=== PATIENT | female | born 1980 | race Caucasian/White ===

== ENCOUNTER → 2020-06-10 15:51 | Outpatient (CLI) | payer BC, SELFPAY ==
--- NOTE | ~2020-06-10 | MM_ITS ---
EXAMINATION: MM screening marilyn BI w bert HISTORY: Screening TECHNIQUE: Craniocaudal and mediolateral oblique 3-D tomosynthesis images were obtained and synthetic 2-D images were generated. CAD analysis was submitted and interpreted. COMPARISON: No prior mammogram is available for comparison at this institution. BREAST PARENCHYMAL COMPOSITION: The breasts are extremely dense, which lowers the sensitivity of mamm ography. FINDINGS: There is no evidence of suspicious mass, calcification, or architectural distortion to sugg est malignancy in either breast. There has been no suspicious interval change. IMPRESSION: 1. No mammographic evidence of malignancy. 2. Recommend routine screening mammography in one year. BI-RADS Category 1: Negative Reviewed, dictated and finalized at location A.
== END ==
PROVIDERS: Visit Provider Obstetrics & Gynecology
DX: Z12.31 Encounter for screening mammogram for malignant neoplasm of breast (principal)
CPT/HCPCS: 77063; 77067

== ENCOUNTER → 2021-11-29 16:00 | Outpatient (CLI) | payer BC, SELFPAY ==
--- NOTE | ~2021-11-29 | MM_ITS ---
EXAMINATION: MM screening marilyn BI w bert HISTORY: Screening mammogram TECHNIQUE: Craniocaudal and mediolateral oblique 3-D tomosynthesis images were obtained and synthetic 2-D images were generated. CAD analysis was submitted and interpreted. COMPARISON: 06/10/2020 bilateral screening mammogram BREAST PARENCHYMAL COMPOSITION: The breasts are extremely dense, which lowers the sensitivity of mamm ography. FINDINGS: There is no evidence of suspicious mass, calcification, or architectural distortion to sugg est malignancy in either breast. There has been no suspicious interval change. IMPRESSION: 1. No mammographic evidence of malignancy. 2. Recommend routine screening mammography in one year. BI-RADS Category 1: Negative Reviewed, dictated and finalized at location A.
== END ==
PROVIDERS: PCP Nurse Practitioner; Visit Provider Obstetrics & Gynecology
DX: Z12.31 Encounter for screening mammogram for malignant neoplasm of breast (principal)
CPT/HCPCS: 77063; 77067

== ENCOUNTER → 2021-12-21 15:16 | Outpatient (CLI) | payer BC, SELFPAY ==
--- NOTE | ~2021-12-21 | US_ITS ---
US thyroid INDICATION: Malignant neoplasm of the thyroid gland TECHNIQUE: Real-time sonographic images of the thyroid gland were obtained. COMPARISON: No prior studies for comparison. FINDINGS: The thyroid gland is surgically absent. No residual mass or fluid collection in the thyroid fossa. IMPRESSION: 1. Unremarkable thyroid ultrasound status post thyroidectomy. Reviewed, dictated and finalized at location B.
== END ==
PROVIDERS: PCP Nurse Practitioner; Visit Provider Otolaryngology
DX: C73 Malignant neoplasm of thyroid gland (principal); E89.0 Postprocedural hypothyroidism
CPT/HCPCS: 76536

== ENCOUNTER 2022-01-11 00:35 | Day surgery (SDC) | payer BC, SELFPAY ==
[2022-01-04 12:04] VITALS: BMI 25.0
--- NOTE | 2022-01-04 12:16 | PC.NURSE ---
Report to the Outpatient Waiting Room, entrance under the green pavilion located off [address], at time 1130 on date 01/11/22. OR Time: 1330. Time changes happen often and if your time is changed the preop area will call you the afternoon before. - You and your visitor will be asked to self-screen and do not enter if you have any COVID symptoms. - We encourage only one visitor and NO visitors under age 16 are allowed at this time. Your visitor will receive communication by the phone number that is given day of service. - The patient visitor is requested to social distance or may leave the building when not with patient due to restrictions. - A mask is required within the hospital. Patients may have clear liquids (water, carbonated beverages, clear teas, apple juice) until 3 hours prior to surgery with a maximum of 20 ounces. - No food from midnight until time of surgery Take the following medications with a SIP of water the morning of surgery: LEVOTHYROXINE, FLUOXETINE Medications to discontinue per physician: N/A Date to take last dose: N/A Please no make-up, nail latvian, hairspray, perfume, deodorant, or body powder the day of surgery. No jewelry (including any body piercings) or valuables the day of surgery, leave them at home. Please take a shower or bath the night before, or the morning of, surgery with an antibacterial soap. Wear comfortable, loose fitting clothing. - Jewelry must be removed prior to entering the operating room. Rings and piercings that are not removed may be cut off. - The hospital will not accept responsibility for valuables. - Please leave all valuables, including medications, at home the day of surgery. If you are going home after surgery, a licensed [employer] flat[employer] truck driver must drive you home. - NO public transportation without another adult. - We recommend that an adult stay with you for 24 hours following discharge. - We also recommend that you do not drive, make important decision, drink alcoholic beverages, or take any drugs that were not prescribed by your health care provider for at least 24 hours after your discharge time. Follow any additional instructions given to you from your surgeon. If you or anyone in your household have experienced Covid symptoms in the past week, please notify your surgeon or the nurse liaison at the phone number below for possible testing. Telephone instructions given to PT - KASANDRA RHIANNA and asked if any additional questions and then verbalized understanding. Patient advised to call surgeon office or pre surgery nurse liaison [phone] if any additional questions.
[2022-01-11] VITALS (9 sets, daily range): BP systolic 116–148; BP diastolic 60–85; PULSE 57–89; RESP 12–20; TEMP 36.7–36.9; O2SAT 97–100
--- NOTE | 2022-01-11 08:57 | PM.IMHP ---
H&P: HPI History of Present Illness Date/Time: 01/11/22 08:57 Chief Complaint: Heavy periods Narrative: 41 y/o with monthly menses lasting 3-5 days each, with very heavy flow. She does not desire any future childbearing. She is interested in surgical management of her problem. Review of Systems Review of Systems: All systems reviewed & are unremarkable except as noted in HPI and below PMFSH Past Medical History Medical History Anxiety History of thoracic outlet syndrome Thyroid cancer Surgical History Surgical History History of cardiac radiofrequency ablation History of knee surgery History of surgery on wrist History of thyroidectomy Family History Family History Other Cerebrovascular accident Hypertension Social History Social History Smoking status: Never smoker Alcohol intake: current Drinks per week: 3 Substance use: never Substance use type: does not use Living arrangements: with family Spiritual care concerns: No Meds Home Medications and Allergies Home Medications Medication Instructions Recorded Confirmed Type fluoxetine 20 mg capsule 20 mg PO DAILY 01/04/22 01/04/22 History levothyroxine 100 mcg tablet 100 mcg PO DAILY 01/04/22 01/04/22 History loratadine 10 mg tablet (Claritin) 10 mg PO DAILY 01/04/22 01/04/22 History Allergies Allergy/AdvReac Type Severity Reaction Status Date / Time No Known Allergies Allergy Unknown Unverified 01/04/22 12:02 Exam Const: Orientation/consciousness: patient oriented x3 Other: Well-developed, well-nourished female in no acute distress. Neck: Thyroid: thyroid normal Lymphatic: no lymphadenopathy noted (in neck, axilla or inguinal nodes) Resp: Effort & Inspection: normal respiratory effort Auscultation: clear to auscultation bilaterally Cardio: Rate: regular rate Rhythm: regular rhythm Heart sounds: S1 normal heart sound present and S2 normal heart sound present GI: Other: ABD: Soft, nontender, nondistended. No guarding or rebound tenderness. No hepatosplenomegaly. : General: Yes no CVA tenderness Other: External genitalia: normal female hair distribution, without lesion. Urethral meatus: no lesion, non prolapsed. Bladder: no mass, nontender Vagina: well-estrogenized, without lesion or discharge. No cystocele or rectocele. Cervix: no lesion or discharge. Uterus: small, anteverted, freely mobile, nontender Adnexa: no mass or tenderness. Anus/perineum: no lesions, nontender Back/Spine/Pelvis: Back: no CVA tenderness Skin: General skin exam: normal color and no rashes or lesions noted Neuro: General: patient oriented x3 Extrem: Other: Extremities: nontender with no edema Psych: Mental Status: mental status grossly normal Affect: normal affect Assessment and Plan Assessment and plan (1) Unwanted fertility: Code(s): Z30.09 - Encounter for other general counseling and advice on contraception Status: Acute Assessment and Plan: A: Menometrorrhagia with desired sterility. P: We have reviewed medical as well as surgical treatment options. She prefers the latter. Specifically, she is interested in laparoscopic bilateral tubal ligation, hysteroscopy, dilation and sharp curettage, and endometrial ablation. She understands there are temporary methods of contraception available to her. She understands that there are nonsurgical options as well as surgical options. She understands that tubal ligation will render her permanently sterile. She understands that there is a failure rate associated with tubal ligation, as well as an inherent ectopic gestation risk. Furthermore, she understands risks of surgery to include risks of anesthesia, risks of pain, infection, bleeding,
--- NOTE | 2022-01-11 10:38 | ECG_ITS ---
Measurements Intervals [place] Rate: 65 P: 43 MA: 143 QRS: 70 QRSD: 93 T: 34 QT: 415 QTc: 434 Interpretive Statements SINUS RHYTHM NORMAL ECG NO PREVIOUS ECG AVAILABLE FOR COMPARISON Electronically Signed On 01-11-2022 13:56:38 CDT by Mukund Mckeon M.D.
--- NOTE | 2022-01-11 12:02 | WPDHPUPDATE1 ---
History and Physical Update Update Date/Time: 01/11/22 12:02 History and Physical has been reviewed, including an updated exam of the patient. There are NO changes in the patient's condition. Risks, benefits, and alternatives have been discussed and questions answered. Patient agrees to proceed with procedure.
[2022-01-11] MEDS: ACETAMINOPHEN 500 MG TABLET 1000 MG PO (12:06)
[2022-01-11] MEDS: LACTATED RINGERS 1,000 ML 30 ML IV CONT ×2 (12:16→15:05)
[2022-01-11] MEDS: KETOROLAC 15 MG/ML VIAL (*BKC) IV PUSH (12:17)
--- NOTE | 2022-01-11 12:58 | P.PNAN_ITS ---
Anes - Initial Pre Proc Eval Procedure: Operation Date: 01/11/22 13:30 Proposed Procedures p Laparoscopic Tubal Ligation with Fallopian Rings - Rafael Wade MD s Hysteroscopy Dilation and Curettage with Radha Endometrial Ablation - Rafael Wade MD Date/Time: 01/11/22 12:58 Surgeon: Rafael Wade MD Pre Op Diagnosis: desires sterilization, heavy bleeding Patient Data Age: 41 Gender: F Height: 1.65 m Weight: 67.3 kg Last Vital Signs Temp 98.4 F 01/11/22 11:32 Pulse 77 01/11/22 11:32 Resp 16 01/11/22 11:32 BP 116/78 01/11/22 11:32 Pulse Ox 100 01/11/22 11:32 O2 Del Method Room Air 01/11/22 11:32 Allergies Allergy/AdvReac Type Severity Reaction Status Date / Time No Known Allergies Allergy Unknown Unverified 01/11/22 11:51 Home Medications Medication Instructions Recorded Confirmed Type fluoxetine 20 mg capsule 20 mg PO DAILY 01/04/22 01/11/22 History levothyroxine 100 mcg tablet 100 mcg PO DAILY 01/04/22 01/11/22 History loratadine 10 mg tablet (Claritin) 10 mg PO DAILY 01/04/22 01/11/22 History Patient hx anesthesia problems: none Family hx anesthesia problems: none Results Review: All pre-operative results and documents have been reviewed as part of the pre- operative evaluation. [facility] Past Medical History Medical History Anxiety History of thoracic outlet syndrome Thyroid cancer Surgical History Surgical History History of cardiac radiofrequency ablation History of knee surgery History of surgery on wrist History of thyroidectomy Family History Family History Other Cerebrovascular accident Hypertension Social History Social History Smoking status: Never smoker Alcohol intake: current Drinks per week: 3 Substance use: never Substance use type: does not use Living arrangements: with family Spiritual care concerns: No Anes - Eval Final PreProcedure Day of Procedure 01/11/22 12:58 Patient weight: normal Heart: regular rate and rhythm Lungs: clear to auscultation Airway: Mallampati scale class II Neurological: alert and oriented Last oral intake: >/= 8 hours ASA classification: III Emergent: no Anesthetic plan: proceed Anesthesia type and monitoring: general ETT and standard monitoring Results Review: All pre-operative results and documents have been reviewed as part of the pre- operative evaluation. Informed Consent: The patient's anesthetic plan and its attendant risks and benefits were discussed with the patient/family/POA. Questions were solicited and answers provided to the satisfaction of the patient/family/POA.
[2022-01-11] MEDS: LIDOCAINE HCL 1% PF 30 ML VIAL 20 ML INFILTRATE (13:55)
--- NOTE | 2022-01-11 14:49 | W.PM.PROC2 ---
Procedure Note - Detailed Date of Procedure 01/11/22 Pre-op Diagnosis Menorrhagia Desired sterilization Post-op Diagnosis Same Procedure Performed Laparoscopic bilateral tubal ligation with Falope rings Hysteroscopy Dilation and sharp curettage Endometrial ablation Surgeon Rafael Wade MD Anesthesia General and Local (1% lidocaine) Findings Normal-appearing RUQ anatomy and vermiform appendix. Normal-appearing uterus, bilateral tubes and ovaries, anterior and posterior cul de sac, bilateral round and uterosacral ligaments. The endometrial cavity was unremarkable. Both tubal ostia were seen. The uterus sounded to a depth of 7.5 cm with a cervical length of 3 cm, giving a uterine cavity length of 4.5 cm. Description of Procedure The patient was taken to the operating room where general endotracheal anesthesia was administered. She was prepared and draped in the usual sterile fashion in dorsal lithotomy position. The bladder was drained with a red rubber catheter. A sterile speculum was placed into the vagina. The anterior lip of the cervix was grasped with a single-tooth tenaculum. The acorn uterine manipulator was placed. The speculum was withdrawn. Gloves were changed and attention was turned the abdomen. An infraumbilical skin incision was made with a scalpel. The abdomen was tented and a 5mm bladeless trocar was advanced under direct laparoscopic visualization. Pneumoperitoneum was administered using carbon dioxide gas. A survey of the pelvis and abdomen revealed the findings noted above. A second skin incision was made in the midline above the symphysis pubis and an 8mm bladeless trocar was advanced under direct laparoscopic visualization. The fallopian tube on the right side was followed out to the fimbriated end for identification. It was then grasped in the midportion with the Falope ring applicator. The Falope ring was tented applied. A good loop of tube was noted to be distal to the ring. Hemostasis was excellent. The device was reloaded and the contralateral tube was similarly identified and ligated. An excellent application was noted here as well. A total of 4mL of 1% lidocaine was infiltrated into the serosa of the proximal tubes for postoperative anesthesia. The ports were withdrawn. The gas was allowed to escape. The skin incisions were reapproximated using interrupted subcuticular sutures of 4 0 Vicryl. Dermaflex was applied externally. The vaginal instrumentation was withdrawn and hemostasis was excellent here as well. Attention was redirected to the vagina, where the acorn manipulator was withdrawn and the speculum reintroduced. Ten mL of 1% lidocaine was administered in a paracervical block. The cervix was then gently dilated using Hegar dilators until an 8 mm dilator could be passed. Hysteroscopy was performed using sterile saline as a distention medium. Findings are as noted above. Sharp curettage was then performed, and endometrial curettings were collected on a Telfa pad and passed off to be sent to pathology. Finally, the the Radha device was advanced and endometrial ablation commenced without difficulty. The device was withdrawn and a second look was taken using the hysteroscope. Excellent coverage of the endometrial cavity was noted. The tenaculum was removed. Hemostasis was excellent. Sponge, lap, needle and instrument counts were correct. The patient was awakened and taken to the recovery room in stable condition. I was present and scrubbed through the entire procedure. Implants Falope rings x 2 Estimated Blood Loss 5 Drains No Packing No Pathology Yes (Endometrial curettings) Complications None Condition Stable Disposition PACU
[2022-01-11] MEDS: fentaNYL CITRATE INJ (*CRX) 100 MCG/2 ML VIAL 25 MCG IV PUSH ×3 (15:11→15:22)
[2022-01-11] MEDS: oxyCODONE HCL (*CRX) 5 MG TAB IR PO (15:58)
== END 2022-01-11 16:37 | disposition home or self-care (01) ==
PROVIDERS: PCP Nurse Practitioner; Visit Provider Obstetrics & Gynecology
PROC: (CPT 58671; principal; 2022-01-11 13:30)
PROC: 0U5B8ZZ Destruction of Endometrium, Via Natural or Artificial Opening Endoscopic (ICD-10-PCS; CPT 58563; 2022-01-11 13:30)
DX: Z30.2 Encounter for sterilization (principal); N92.0 Excessive and frequent menstruation with regular cycle; F41.9 Anxiety disorder, unspecified; E89.0 Postprocedural hypothyroidism
CPT/HCPCS: 58671; 58563; 88305; 93005; A4264; A9270; J1100; J1885; J2250; J2405; J2704; J3010; J7030; J7120

== ENCOUNTER 2022-01-15 13:47 | Emergency (ER) | payer BC, SELFPAY ==
[2022-01-15 13:56] VITALS: BP 128/83; PULSE 105; RESP 16; TEMP 36.3; O2SAT 99
--- NOTE | 2022-01-15 14:05 | ED.SKABFB ---
HPI - Skin/Abscess/Foreign Bdy General Chief complaint: Skin/Abscess/Foreign Body Stated complaint: itchy Time Seen by Provider: 01/15/22 14:06 Source: patient Mode of arrival: ambulatory Limitations: no limitations History of Present Illness HPI narrative: 41-year-old female presented for complaints of redness and itchiness to abdominal surgical incisions. Patient underwent tubal ligation and uterine ablation 4 days ago. When she developed the symptoms, she contacted her surgeon who instructed her to remove the surgical glue. She states it currently appears much improved, but is still red and itchy, and oozing clear or yellow fluid soaking through her clothes often. She denies nausea, vomiting, diarrhea, fever, throat swelling, shortness of breath or wheezing. Endorses similar appearing rash occurred to neck when she had thyroidectomy a few months ago, required hospitalization and antibiotics. Related Data Home Medications Medication Instructions Recorded Confirmed fluoxetine 20 mg capsule 20 mg PO DAILY 01/04/22 01/15/22 levothyroxine 100 mcg tablet 100 mcg PO DAILY 01/04/22 01/15/22 loratadine 10 mg tablet (Claritin) 10 mg PO DAILY 01/04/22 01/15/22 Allergies Allergy/AdvReac Type Severity Reaction Status Date / Time No Known Allergies Allergy Unknown Verified 01/15/22 13:49 Review of Systems Review of Systems: CONSTITUTIONAL: Denies body aches, fever, chills, or sweats. EYES: Denies visual changes, redness, or discharge. ENT: Denies rhinorrhea, congestion CARDIOVASCULAR: Denies chest pain, palpitations, or edema. RESPIRATORY: Denies cough or dyspnea. GASTROINTESTINAL: Denies abdominal pain, nausea, vomiting, or diarrhea. SKIN: red/itchy surgical sites MUSCULOSKELETAL: Denies back pain, joint pain, or myalgia. NEUROLOGIC: Denies headache, numbness, tingling, or weakness. [facility] Past Medical History Medical History Anxiety History of thoracic outlet syndrome Thyroid cancer Surgical History Surgical History History of cardiac radiofrequency ablation History of knee surgery History of surgery on wrist History of thyroidectomy Family History Family History Other Cerebrovascular accident Hypertension Social History Social History Smoking status: Never smoker Alcohol intake: current Drinks per week: 3 Substance use: never Substance use type: does not use Spiritual care concerns: No Comments At time of signature, I have reviewed and agree with nursing past medical, surgical, social and family history unless otherwise noted. Please see nursing chart for further information. There is no relevant family history pertinent to the presenting complaint Exam Narrative: GENERAL: Well-appearing EYES: conjunctivae clear, and EOMI. ENT: Mucous membranes moist. Oropharynx without edema, erythema or lesions. CHEST: Clear to auscultation. HEART: Regular rate and rhythm. SKIN: Warm, dry. umbilical incision is approximated, with surrounding erythema 3cm diameter, pinpoint vesicles oozing clear fluid. Superior to umbilical incision is a 2.5cm diameter area of erythema. Suprapubic incision well approximated, surrounding redness [id number], with pinpoint vesicles oozing clear fluid. Nontender, no fluctuance. NEURO: Alert and oriented x3. Course Course Emergency Course: Patient is aware of diagnosis, understands and agrees to treatment plan. Anticipatory guidance given. Patient agrees to follow-up as directed and is aware of reasons to seek care at the emergency department. Portions of this record may have been created with voice recognition software Level of Care: Express Care Visit Vital Signs Vital signs: Vital Signs Temperature 97.3 F L 01/15/22 13:56 Pulse R
== END 2022-01-15 14:25 | disposition home or self-care (01) ==
PROVIDERS: Emergency Provider Nurse Practitioner Family
DX: L25.9 Unspecified contact dermatitis, unspecified cause (principal); F41.9 Anxiety disorder, unspecified; E89.0 Postprocedural hypothyroidism; Z85.850 Personal history of malignant neoplasm of thyroid
CPT/HCPCS: 99213; G0463

== ENCOUNTER 2023-01-27 15:39 | Emergency (ER) | payer BC, SELFPAY ==
[2023-01-27 15:42] VITALS: BP 128/06; PULSE 80; RESP 16; TEMP 36.3; O2SAT 100
[2023-01-27 16:03] VITALS: BP 127/78; PULSE 82; RESP 15; O2SAT 100
--- NOTE | 2023-01-27 16:38 | ED.EYEPROB ---
HPI - Eye Problem General Chief complaint: Eye Problems Stated complaint: floaters in right and light streaks Time Seen by Provider: 01/27/23 16:34 History of Present Illness HPI Narrative: Patient is a 42-year-old female who presents to the emergency department this afternoon complaining of right eye floaters. Patient states that yesterday she noticed some floaters in her right eye which has subsided, however, this morning she started to notice more floaters and streaks over her right eye. Patient denies any vision changes associated with this, she denies any pain, any conjunctival injection or irritation, any headaches or pain with eye movements. She denies any history of diabetes, hypertension, muscle strength 5 out of 5 bilateral upper and lower extremities, glaucoma or any previous eye problems. Patient also denies any chest pain, shortness of breath, nausea, vomiting, abdominal pain, dysuria, hematuria, constipation, diarrhea, melena, hematochezia, fevers or chills. She denies any headaches, dizziness, lightheadedness, blurry visions, focal weakness, numbness and or tingling. There are no other modifying, alleviating, or precipitating factors at this time. Related Data Home Medications Medication Instructions Recorded Confirmed fluoxetine 20 mg capsule 20 mg PO DAILY 01/04/22 01/15/22 levothyroxine 100 mcg tablet 100 mcg PO DAILY 01/04/22 01/15/22 loratadine 10 mg tablet (Claritin) 10 mg PO DAILY 01/04/22 01/15/22 Allergies Allergy/AdvReac Type Severity Reaction Status Date / Time No Known Allergies Allergy Unknown Verified 01/15/22 13:49 Review of Systems Review of Systems: All systems are reviewed and are negative unless stated otherwise in the HPI. [facility] Past Medical History Medical History Anxiety History of thoracic outlet syndrome Thyroid cancer Surgical History Surgical History History of cardiac radiofrequency ablation History of knee surgery History of surgery on wrist History of thyroidectomy Family History Family History Other Cerebrovascular accident Hypertension Social History Social History Smoking status: Never smoker Alcohol intake: current Drinks per week: 3 Substance use: never Substance use type: does not use Living arrangements: with family Spiritual care concerns: No Exam Narrative: General: Alert, awake, afebrile, in no acute distress. HEENT: PERRL, intact direct and consensual eye reflex, no evidence of internuclear ophthalmoplegia, no rhinorrhea, no post nasal drip, oropharynx clear. Slit eye exam reveals a clear anterior chamber with no flare cells, no hyphema, no hypopyon, no conjunctival injection, no perilimbal flush, no foreign bodies identified with lid eversion, no chemosis, no proptosis, no decreased visual acuity, no pain with extraocular movement. Neck: Trachea midline, no JVD, no lymphadenopathy. Cardiovascular: Regular rate and rhythm, no murmurs, rubs or gallops, no peripheral edema. Respiratory: Clear to auscultation bilaterally, no tachypnea, no wheezing, no rhonchi, no rubs, no respiratory distress. Abdomen: Soft, nontender, nondistended, no rebound, no guarding, no peritoneal signs. Musculoskeletal: No joint swelling or deformity, normal muscle tone. Skin: No rashes or petechia, no signs of infection. Psychiatric: Alert and oriented, normal behavior and judgment for situation. Neurological: Alert and oriented to person, place, and time. Follows all commands. No focal deficits, speech is clear and fluent. Course Vital Signs Vital signs: Vital Signs Temperature 97.3 F L 01/27/23 15:42 Pulse Rate 80 01/27/23 15:42 Respiratory Rate 16 01/27/23 15:42 Blood Pressure 128/06 L 01/27/23 15:42 Pulse Oximetry 10
[2023-01-27] MEDS: TETRACAINE HCL 0.5% OPHTH SOLN 4 ML BTL 1 DROP EACH EYE (17:04)
[2023-01-27] MEDS: FLUORESCEIN SOD 1 MG/STRIP EACH EYE (17:04)
[2023-01-27 18:05] VITALS: BP 117/79; PULSE 71; RESP 17; O2SAT 100
== END 2023-01-27 18:06 | disposition home or self-care (01) ==
PROVIDERS: Emergency Provider Emergency Medicine; PCP Nurse Practitioner
DX: H43.391 Other vitreous opacities, right eye (principal); F41.9 Anxiety disorder, unspecified; Z85.850 Personal history of malignant neoplasm of thyroid
CPT/HCPCS: 99283; A9270

== ENCOUNTER → 2023-03-02 15:37 | Outpatient (CLI) | payer BC, SELFPAY ==
--- NOTE | ~2023-03-02 | US_ITS ---
EXAMINATION: US thyroid DATE: 03/02/2023 16:10 INDICATION: Malignant neoplasm of thyroid gland. TECHNIQUE: Multiple ultrasound images of the thyroid were obtained. COMPARISON: Ultrasound 12/21/2021 FINDINGS: There are changes of thyroidectomy. There is no abnormal mass or lymphadenopathy. IMPRESSION: 1. Thyroidectomy. No abnormal mass or lymphadenopathy. Reviewed, dictated and finalized at location E. R LAB TECHNICIAN
== END ==
PROVIDERS: PCP Otolaryngology; Visit Provider Otolaryngology
DX: C73 Malignant neoplasm of thyroid gland (principal)
CPT/HCPCS: 76536

== ENCOUNTER → 2023-05-21 15:57 | Outpatient (CLI) | payer BC, SELFPAY ==
--- NOTE | ~2023-05-21 | MM_ITS ---
EXAMINATION: MM screening [facility] HISTORY: Screening TECHNIQUE: Craniocaudal and mediolateral oblique 3-D tomosynthesis images were obtained and synthetic 2-D images were generated. CAD analysis was submitted and interpreted. COMPARISON: Comparison to multiple prior studies sequentially, with oldest reviewed study dated 06/10. BREAST PARENCHYMAL COMPOSITION: Dense: The breasts are extremely dense, which lowers the sensitivity of mammography. FINDINGS: There is no evidence of suspicious mass, calcification, or architectural distortion to sugg est malignancy in either breast. There has been no suspicious interval change. IMPRESSION: 1. No mammographic evidence of malignancy. 2. Recommend routine screening mammography in one year. BI-RADS Category 1: Negative Reviewed, dictated and finalized at location A. N PACKER
== END ==
PROVIDERS: PCP Obstetrics & Gynecology; Visit Provider Obstetrics & Gynecology
DX: Z12.31 Encounter for screening mammogram for malignant neoplasm of breast (principal)
CPT/HCPCS: 77063; 77067

== ENCOUNTER 2024-11-28 12:22 | Outpatient (CLI) | payer BC, SELFPAY ==
--- NOTE | ~2024-11-28 | MM_ITS ---
EXAMINATION: MM screening [facility] HISTORY: Screening TECHNIQUE: Craniocaudal and mediolateral oblique 3-D tomosynthesis images were obtained and synthetic 2-D images were generated. CAD analysis was submitted and interpreted. COMPARISON: Mammograms 05/21/2023 and 11/29/2021 BREAST PARENCHYMAL COMPOSITION: The breasts are extremely dense, which lowers the sensitivity of mammography. FINDINGS: There is no evidence of suspicious mass, calcification, or architectural distortion to suggest malignancy in either breast. There has been no significant interval change. IMPRESSION: 1. No mammographic evidence of malignancy. Recommend routine screening mammography in one year. BI-RADS Category 1: Negative Reviewed, dictated and finalized at location Q. IMPRESSION: 1. No mammographic evidence of malignancy. Recommend routine screening mammogra phy in one year. BI-RADS Category 1: Negative
== END 2024-11-28 12:23 | disposition home or self-care (01) ==
PROVIDERS: PCP Obstetrics & Gynecology; Visit Provider Obstetrics & Gynecology
DX: Z12.31 Encounter for screening mammogram for malignant neoplasm of breast (principal)
CPT/HCPCS: 77063; 77067